=== PATIENT | male | born 1980 | race Caucasian/White ===

== ENCOUNTER 2020-08-14 20:56 | Emergency (ER) | payer BC, OTHER ==
[2020-08-15] MEDS ORDERED: Acetaminophen 500 MG Tab ONE (00:38)
[2020-08-15 04:30] LABS: BLOOD UREA NITROGEN,BUN 14 mg/dL (7.0-18.0); CARBON DIOXIDE,CO2 26.1 mmol/L (21.0-32.0); CHLORIDE,CL 102 mmol/L (98-107); GLUCOSE RANDOM 116 mg/dL (74-106); POTASSIUM,K 3.6 mmol/L (3.5-5.1); SODIUM,NA 136 mmol/L (136-148)
--- NOTE | 2020-08-15 13:01 | CR ---
INDICATION: Shortness of breath TECHNIQUE: Chest radiograph 1 view COMPARISON: None FINDINGS: Mediastinum: The mediastinum is normal in appearance. The heart silhouette is normal in size and morphology. Lung: Both lungs are unremarkable in appearance. No sign of pleural effusion seen. No pneumothorax is identified. Bone and Soft tissue: Unremarkable for age. IMPRESSION: 1. No acute cardiopulmonary disease is seen. Dictated by: David Colorado MD @ 08/15/2020 13:00:39 (Electronically Signed)
== END 2020-08-15 01:21 | disposition home or self-care (01) ==
LOC: MW.ED 20:56
DX: R07.89 Other chest pain (principal); R51.9 Headache, unspecified; R63.0 Anorexia; R68.83 Chills (without fever); R42 Dizziness and giddiness; Z88.8 Allergy status to other drugs, medicaments and biological substances; Z91.013 Allergy to seafood; Z79.899 Other long term (current) drug therapy
CPT/HCPCS: 36415; 71045; 71045-26; 80053; 84484; 85025; 93010; 99284; 99285-25; U0002